=== PATIENT | male | born 1935 | race Caucasian/White ===

== ENCOUNTER 2020-06-23 16:58 | Observation (INO) ==
[2020-06-23] MEDS ORDERED: Naloxone 0.4 MG/ML INJ IVP PRN (23:21)
[2020-06-24 01:11] LABS: INR 1.3; Prothrombin Time 14.6 Seconds (9.4-12.1)
[2020-06-24 01:21] LABS: BUN/Creatinine Ratio 31 (6-26); Blood Urea Nitrogen 38 mg/dL (8-23); Calcium 8.8 mg/dL (8.6-10.3); Carbon Dioxide 23 mEq/L (23-29); Chloride 101 mEq/L (98-107); Glucose 104 mg/dL (70-105); Osmolality,Calculated 285 (280-300); Potassium 4.4 mEq/L (3.5-5.1); Sodium 133 mEq/L (136-145); eGFR For African Americans > 60 (> 60); eGFR For Non-African Americans 56 (> 60)
[2020-06-24 01:56] LABS: Hemoglobin 9.6 g/dL (12.9-16.9); Mean Corpuscular Volume 96.5 fL (83.0-100.0); Red Cell Distribution Width 13.3 % (11.5-14.5)
[2020-06-24 01:58] LABS: Eosinophils # 0.3 K/mcL (0.0-0.6); Eosinophils % 32.5 %; Hematocrit 27.4 % (37.5-50.1); Immature Platelets 3.7 % (1.1-6.1); Lymphocytes # 0.5 K/mcL (0.6-4.6); Lymphocytes % 57.8 %; Mean Corpuscular Hemoglobin 33.8 pg (28.0-33.3); Mean Platelet Volume 10.5 fL (9.4-12.4); Monocytes % 2.4 %; Neutrophils # 0.1 K/mcL (1.6-8.9); Red Blood Count 2.84 M/mcL (4.19-5.50); Segmented Neutrophils % 7.3 %
[2020-06-24 02:00] LABS: Platelet Count 34 K/mcL (140-400); White Blood Count 0.8 K/mcL (4.3-11.1)
[2020-06-24 02:20] LABS: Anisocytosis 2+ (Not Present); Platelet Estimate Marked Decrease (Normal)
[2020-06-24] MEDS: Chlorhexidine Rinse 15 ML MOUTHWASH MM SCH ×2 (07:24→19:34)
[2020-06-24] MEDS ORDERED: Cefepime HCl 1,000 MG in Water for inj. (sterile) 10 ML IVP SCH (08:00)
[2020-06-24] MEDS ORDERED: predniSONE 20 MG TABLET PO SCH (09:00)
[2020-06-24] MEDS: Sodium Bicarbonate 150 MEQ in Water for inj. (sterile) 1,000 ML IVC SCH ×2 (09:00→16:21)
[2020-06-24 09:04] LABS: Folate 15.5 ng/mL (3.0-16.0)
[2020-06-24] MEDS: Cefepime HCl 2,000 MG in Water for inj. (sterile) 20 ML IVP SCH ×2 (09:05→19:33)
[2020-06-24] MEDS: Cyanocobalamin (B-12) 1,000 MCG/ML VIAL SQ SCH (11:04)
[2020-06-24] MEDS: Lidocaine Viscous Oral Soln 15 ML SOLUTION MM PRN (13:02)
[2020-06-24 15:23] LABS: Alanine Aminotransferase 16 Units/L (7-52); Albumin 3.1 g/dL (3.5-5.7); Albumin/Globulin Ratio 1.3 (1.1-2.2); Alkaline Phosphatase 49 Units/L (34-104); Aspartate Amino Transferase 16 Units/L (13-39); Bilirubin,Direct 0.3 mg/dL (0.0-0.2); Bilirubin,Indirect 0.7 mg/dL (0.0-1.0); Globulin 2.4 g/dL (2.4-3.5); Total Protein 5.5 g/dL (6.4-8.9)
[2020-06-24] MEDS: Magic Mouthwash 10 ML UD Cup PO SCH (16:21)
[2020-06-24] MEDS: Pantoprazole 40 MG VIAL IVP SCH (16:22)
[2020-06-25 02:20] LABS: Hematocrit 25.3 % (37.5-50.1); Hemoglobin 8.6 g/dL (12.9-16.9); Mean Corpuscular Hemoglobin 33.3 pg (28.0-33.3); Mean Corpuscular Volume 98.1 fL (83.0-100.0); Monocytes % 3.6 %; Red Blood Count 2.58 M/mcL (4.19-5.50)
[2020-06-25 02:22] LABS: Eosinophils # 0.1 K/mcL (0.0-0.6); Eosinophils % 14.5 %; Immature Platelets 4.8 % (1.1-6.1); Lymphocytes # 0.5 K/mcL (0.6-4.6); Lymphocytes % 62.7 %; Mean Platelet Volume 10.5 fL (9.4-12.4); Neutrophils # 0.2 K/mcL (1.6-8.9); Red Cell Distribution Width 13.7 % (11.5-14.5); Segmented Neutrophils % 19.2 %
[2020-06-25 02:32] LABS: Platelet Count 36 K/mcL (140-400)
[2020-06-25 02:33] LABS: White Blood Count 0.8 K/mcL (4.3-11.1)
[2020-06-25 02:40] LABS: Alanine Aminotransferase 15 Units/L (7-52); Albumin 2.5 g/dL (3.5-5.7); Alkaline Phosphatase 41 Units/L (34-104); Aspartate Amino Transferase 15 Units/L (13-39); BUN/Creatinine Ratio 33 (6-26); Bilirubin,Total 0.9 mg/dL (0.3-1.0); Blood Urea Nitrogen 31 mg/dL (8-23); Calcium 8.1 mg/dL (8.6-10.3); Carbon Dioxide 29 mEq/L (23-29); Chloride 96 mEq/L (98-107); Globulin 2.4 g/dL (2.4-3.5); Glucose 77 mg/dL (70-105); Osmolality,Calculated 287 (280-300); Potassium 3.6 mEq/L (3.5-5.1); Sodium 136 mEq/L (136-145); Total Protein 4.9 g/dL (6.4-8.9); eGFR For African Americans > 60 (> 60); eGFR For Non-African Americans > 60 (> 60)
[2020-06-25 02:41] LABS: Anisocytosis 1+ (Not Present)
[2020-06-25 02:42] LABS: Platelet Estimate Marked Decrease (Normal)
[2020-06-25] MEDS: Pantoprazole 40 MG VIAL IVP SCH ×2 (05:03→16:55)
[2020-06-25] MEDS: Cyanocobalamin (B-12) 1,000 MCG/ML VIAL SQ SCH (07:30)
[2020-06-25] MEDS: Cefepime HCl 2,000 MG in Water for inj. (sterile) 20 ML IVP SCH (07:30)
[2020-06-25] MEDS: Magic Mouthwash 10 ML UD Cup PO SCH ×3 (07:32→16:54)
[2020-06-25] MEDS: Chlorhexidine Rinse 15 ML MOUTHWASH MM SCH (07:32)
[2020-06-25] MEDS ORDERED: Acetaminophen 325 MG TABLET PO PRN (10:17)
[2020-06-25] MEDS: Lidocaine Viscous Oral Soln 15 ML SOLUTION MM PRN (11:22)
[2020-06-25 15:48] VITALS: BP 120/74
== END 2020-06-25 18:32 | disposition short-term general hospital (02) ==
LOC: 2ANU
PROVIDERS: ADMIT Internal Medicine; ATTEND Internal Medicine

== ENCOUNTER 2021-05-05 22:37 | Inpatient (IN) ==
[2021-05-06] MEDS ORDERED: Melatonin 3 MG TABLET PO PRN (00:45)
[2021-05-06] MEDS ORDERED: Acetaminophen 325 MG TABLET PO PRN (00:45)
[2021-05-06] MEDS ORDERED: Ondansetron 4 MG/2 ML VIAL IVP PRN (00:45)
[2021-05-06] MEDS ORDERED: Naloxone 0.4 MG/ML INJ IVP PRN (00:45)
[2021-05-06] MEDS ORDERED: 0.9 % Sodium Chloride 1,000 ML IVC ONE (06:21)
[2021-05-06] MEDS ORDERED: Benzonatate 100 MG CAPSULE PO PRN (06:22)
[2021-05-06 08:13] LABS: Hemoglobin 11.9 g/dL (12.9-16.9); Mean Corpuscular HGB Conc 31.3 g/dL (31.6-35.5); Mean Corpuscular Hemoglobin 31.2 pg (28.0-33.3); Mean Corpuscular Volume 99.5 fL (83.0-100.0); Mean Platelet Volume 10.2 fL (9.4-12.4); Platelet Count 205 K/mcL (140-400); Red Blood Count 3.82 M/mcL (4.19-5.50); Red Cell Distribution Width 13.8 % (11.5-14.5)
[2021-05-06] MEDS: Ipratropium 1 PUFF INHALER IH SCH ×5 (08:24→23:50)
[2021-05-06 08:47] LABS: Albumin 3.2 g/dL (3.5-5.7); Albumin/Globulin Ratio 1.2 (1.1-2.2); Bilirubin,Total 0.7 mg/dL (0.3-1.0); Calcium 8.4 mg/dL (8.6-10.3); Globulin 2.7 g/dL (2.4-3.5); Phosphorous 2.5 mg/dL (2.7-4.5); Potassium 4.1 mEq/L (3.5-5.1); Total Protein 5.9 g/dL (6.4-8.9); Troponin I 0.07 ng/mL (< 0.04)
[2021-05-06 08:49] LABS: Lymphocytes # 1.3 K/mcL (0.6-4.6); Monocytes # 0.4 K/mcL (0.0-1.3); Neutrophils # 7.4 K/mcL (1.6-8.9); Platelet Estimate Normal (Normal)
[2021-05-06] MEDS ORDERED: cefTRIAXone 1,000 MG in Water for inj. (sterile) 10 ML IVP SCH (09:00)
[2021-05-06] MEDS ORDERED: Perflutren Lipid Microsphere 1.3 ML in 0.9 % Sodium Chloride 8.7 ML IVP PRN (09:18)
[2021-05-06] MEDS: Azithromycin 500 MG in D5% in Water 250 ML IVPB SCH (09:52)
[2021-05-06] MEDS: cefTRIAXone 1,000 MG in 0.9 % Sodium Chloride Mini Bag 100 ML IVPB SCH (09:52)
[2021-05-06] MEDS: *HR* Heparin 5,000 UNIT/ML VIAL SQ SCH (17:06)
[2021-05-06] MEDS ORDERED: *HR* HYDROcodone/Acet 5/325 mg TABLET PO PRN (17:20)
[2021-05-06] MEDS: carvediloL 6.25 MG TABLET PO SCH (18:02)
[2021-05-06] MEDS: Folic Acid 1 MG TABLET PO SCH (20:38)
[2021-05-07 04:40] VITALS: TEMP 97.5
[2021-05-07] MEDS: Ipratropium 1 PUFF INHALER IH SCH ×3 (04:59→12:12)
[2021-05-07] MEDS: *HR* Heparin 5,000 UNIT/ML VIAL SQ SCH (05:33)
[2021-05-07 06:20] LABS: Hematocrit 35.8 % (37.5-50.1); Hemoglobin 11.4 g/dL (12.9-16.9); Mean Corpuscular HGB Conc 31.8 g/dL (31.6-35.5); Mean Corpuscular Hemoglobin 30.5 pg (28.0-33.3); Mean Corpuscular Volume 95.7 fL (83.0-100.0); Mean Platelet Volume 10.1 fL (9.4-12.4); Platelet Count 221 K/mcL (140-400); Red Blood Count 3.74 M/mcL (4.19-5.50); Red Cell Distribution Width 13.7 % (11.5-14.5); White Blood Count 8.5 K/mcL (4.3-11.1)
[2021-05-07 06:22] LABS: Alanine Aminotransferase 8 Units/L (7-52); Albumin/Globulin Ratio 1.1 (1.1-2.2); Alkaline Phosphatase 57 Units/L (34-104); Aspartate Amino Transferase 14 Units/L (13-39); BUN/Creatinine Ratio 32 (6-26); Bilirubin,Total 0.5 mg/dL (0.3-1.0); Blood Urea Nitrogen 37 mg/dL (8-23); Calcium 8.8 mg/dL (8.6-10.3); Carbon Dioxide 19 mEq/L (23-29); Chloride 116 mEq/L (98-107); Globulin 2.8 g/dL (2.4-3.5); Glucose 118 mg/dL (70-105); Osmolality,Calculated 290 (280-300); Potassium 3.7 mEq/L (3.5-5.1); Sodium 135 mEq/L (136-145); Total Protein 5.8 g/dL (6.4-8.9); eGFR For African Americans > 60 (> 60); eGFR For Non-African Americans > 60 (> 60)
[2021-05-07 08:03] VITALS: BP 131/74; PULSE 62; O2SAT 95
[2021-05-07] MEDS ORDERED: LEFLUNOMIDE 10 MG PO SCH (09:00)
[2021-05-07] MEDS ORDERED: Cholecalciferol (D-3) 1,000 UNIT (25MCG) TABLET PO SCH (09:00)
[2021-05-07] MEDS ORDERED: Multivit/Ca/Min/Fe/FA 1 TAB TABLET PO SCH (09:00)
[2021-05-07] MEDS: cefTRIAXone 1,000 MG in 0.9 % Sodium Chloride Mini Bag 100 ML IVPB SCH (09:43)
[2021-05-07] MEDS: Azithromycin 500 MG in D5% in Water 250 ML IVPB SCH (09:44)
[2021-05-07] MEDS: Folic Acid 1 MG TABLET PO SCH (09:44)
[2021-05-07] MEDS: carvediloL 6.25 MG TABLET PO SCH (09:44)
== END 2021-05-07 12:30 | disposition home or self-care (01) | DRG 177 ==
LOC: 2ANU → SUATTDRO 05-06 00:23
PROVIDERS: ADMIT Internal Medicine; ATTEND Family Medicine